=== PATIENT | male | born 1955 | race Caucasian/White ===

== ENCOUNTER 2018-05-01 05:25 | Emergency (ER) | payer BC ==
[~2018-05-01] VITALS: Ht 177.8 cm; Wt 121.1 kg
[2018-05-01 05:29] VITALS: BP 202/102
--- NOTE | 2018-05-01 05:29 | NUR ---
HOME MEDICATIONS PATIENT DOES NOT HAVE CURRENT HOME MEDICATION LIST. PATIENT DOES NOT RECALL ALL MEDICATIONS AND DOSES; HOWEVER VOICES HE TAKES THESE FOLLOWING MEDICATIONS: RAMIPRIL ISOSORBIDE SIMVASTATIN ASPIRIN JANUVIA
--- NOTE | 2018-05-01 05:29 | NUR ---
ARRIVAL PT ARRIVES VIA POV AND VOICES CHEST PAIN X1 HOUR. PT ACCOMPANIED BY FAMILY X3. PT TO ER ROOM 2 VIA W/C; POSITIONED IN BED TO COMFORT. UPON ARRIVAL, EKG OBTAINED IMMEDIATELY, VITALS OBTAINED, HISTORY OBTAINED AND EDP AT BEDSIDE. PT ALERT, ORIENTED. VOICES PAIN TO LEFT CHEST, DENIES RADIATION, DENIES SHORTNESS OF BREATH. PT VOICES SUDDEN ONSET PAIN AFTER GETTING OUT OF BATH TUB, HAD A NEAR FALL.
--- NOTE | 2018-05-01 05:34 | ER.PDOC ---
General Chief Complaint: Requesting Medical Care Stated Complaint: CHEST PAIN Time seen by MD: 05:33 Source: patient, family Exam Limitations: no limitations History of Present Illness Initial Comments Patient presents to the ED with vague central chest pain that started after patient slipped getting out of bath tub. Pain constant worse with deep breath. Hx TN with multiple stents Timing/Duration: 1-3 hours Severity/Quality: moderate Radiation: no radiation Activities at Onset: activity/exertion Prior CP/Workup: Cardiac Cath, Heart Attack Modifying Factors: movement, palpation Nitro Today/Relief: No Nitro Taken Today Aspirin Today: No Aspirin Today Associated Symptoms: denies symptoms Prior symptoms/Treatment: Similar symptoms previous, Treated by Doctor Allergies: Coded Allergies: No Known Allergies (Unverified , 05/01/18) Home Meds Unable to Obtain Active Prescriptions or Reported Meds Vital Sign Vital Signs Date Time Temp Pulse Resp B/P (MAP) Pulse Ox O2 Delivery O2 Flow Rate FiO2 05/01/18 05:29 98.3 91 22 98 Room Air Allergies Coded Allergies Type Severity Reaction Last Updated Verified No Known Allergies 05/01/18 No Past Medical History Medical History: angina, coronary artery disease, cardiac problems, heart attack, vascular disease Family History Significant Family History: no pertinent family hx Social History Alcohol Use: occassionally Reviewed Nursing Reviewed: Vital Signs, Abn. Noted, Nursing Assessment Constitutional: no symptoms reported EENTM: no symptoms reported Respiratory: no symptoms reported Cardiovascular: chest pain; denies edema, denies irregular heart rate, denies lightheadedness, denies palpitations, denies syncope Gastrointestinal: denies abdominal pain, denies diarrhea, denies nausea, denies vomiting Musculoskeletal: denies back pain, denies joint pain, denies muscle pain All Other Systems: Reviewed and Negative Physical Exam General Appearance: No Apparent Distress, WD/WN HEENT: PERRL/EOMI, Normal ENT Inspection, TMs Normal, Pharynx Normal Neck: Non-Tender, Full Range of Motion, Supple, Normal Inspection Respiratory: lungs clear, normal breath sounds, no respiratory distress, no accessory muscle use, other (pain with chest compression.) Cardiovascular: Normal Peripheral Pulses, Regular Rate, Rhythm, No Edema, No Gallop, No JVD, No Murmur Gastrointestinal: Normal Bowel Sounds, No Organomegaly, No Pulsatile Mass, Non Tender, Soft Extremities: Normal Range of Motion, Non-Tender, Normal Inspection, No Pedal Edema, No Calf Tenderness, Normal Capillary Refill Neurologic/Psychiatric: 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 NML as Tested, No Motor/Sensory Deficits, Alert, Normal Mood/Affect, Oriented x 3 Skin: Normal Color, Warm/Dry Lymphatic: No Adenopathy Results/Orders Results/Orders Laboratory Tests 05/01/18 05:40: White Blood Count 13.0H, Red Blood Count 5.17, Hemoglobin 14.2, Hematocrit 43.1 , Mean Corpuscular Volume 83.4, Mean Corpuscular Hemoglobin 27.5, Mean Corpuscular Hemoglobin Concent 32.9L, Red Cell Distribution Width 13.9, Platelet Count 87L, Mean Platelet Volume 11.5H, Neutrophils (%) (Auto) 89.3H, Lymphocytes (%) (Auto) 5.5*L, Monocytes (%) (Auto) 4.6L, Neutrophils # (Auto) 11.6H, Lymphocytes # (Auto) 0.7L, Monocytes # (Auto) 0.6, Absolute Immature Granulocyte (auto 0.04, Eosinophils % 0.3, Basophils % 0.0, Basophils # 0.0, Eosinophil Count 0.0, Sodium Level 138, Potassium Level 4.7, Chloride Level 103.0, Carbon Dioxide Level 23.7, Anion Gap 16.0, Blood Urea Nitrogen 18, Creatinine 1.38, Estimated GFR () 62.8, BUN/Creatinine Ratio 13.0, Glucose Level 390H, Calcium Level 9.3, Total Bilirubin 0.4, Aspartate Amino Transf (AST/SGOT) 16, Alanine Aminotransferase (ALT/SGPT) 22, Alkaline Phosphatase 131, Total Creatine Kinase 111, Creatine Kinase MB 2.7, Troponin I 0.10H, Total Protein 7.9, Albumin 4.0, Globulin 3.9, Percent Immature Gran ( Cell Imm) 0.30 05/01/18 05:51: Differential Total Cells Counted 100, Segmented Neutrophils 90H, Band Neutrophils 1L, Lymphocytes 2L, Monocytes 7 Progress Progress Patient with out complaints at this time EKG/XRAY/CT/US EKG: NSR, ME (158), QRS (82), nonspecific ST T wave chg XRAY: chest XRAY Comments: no acute findings Departure Time of Disposition: 06:25 Disposition: 70 DISC/XFER TO ANOTH TYP [facility] Impression: Primary Impression: Chest pain due to myocardial ischemia Additional Impression: NSTEMI, initial episode of care Condition: Stable Scripts Unable to Obtain Active Prescriptions or Reported Meds Duration or Time Spent with Pa: 60 Problem Qualifiers Primary Impression: Chest pain due to myocardial ischemia Ischemic chest pain type: unstable angina pectoris Qualified Codes: I20.0 - Unstable angina PIERO SOSA MD May 01, 2018 05:34
--- NOTE | 2018-05-01 05:35 | PCM.EKG ---
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
[2018-05-01 05:42] VITALS: BP 186/94
[2018-05-01 05:45] LABS: EOSINOPHIL % 0.3 % (0.0-5.0); HEMOGLOBIN 14.2 g/dL (13.9-16.3); LYMPHOCYTES # 0.7 10^3/uL (1.0-4.8); LYMPHOCYTES % 5.5 % (24.0-44.0); MEAN CELL HGB 27.5 pg (26-34); MEAN CELL HGB CONCENTRATION 32.9 g/dL (33-37); MEAN CORP VOLUME 83.4 fL (78-100); MEAN PLATELET VOLUME 11.5 fL (7.8-11.0); MONOCYTES # 0.6 10^3/uL (0.3-0.8); MONOCYTES % 4.6 % (5.0-12.0); NEUTROPHIL # 11.6 10^3/uL (1.8-7.7); NEUTROPHILS % 89.3 % (41.0-85.0); RED CELL DISTRIBUTION WIDTH 13.9 % (11.5-14.5)
[2018-05-01] MEDS ORDERED: ASPIRIN ONE (05:45)
--- NOTE | 2018-05-01 05:57 | DIREP ---
PROCEDURE:CHEST 1 VIEW COMPARISON:None. INDICATIONS:pain FINDINGS: LUNGS/PLEURA:No significant pulmonary parenchymal abnormalities. No effusions. VASCULATURE:Normal. Unremarkable pulmonary vasculature. CARDIAC:Normal. No cardiac silhouette abnormality or cardiomegaly. MEDIASTINUM:Normal. No visible mass or adenopathy. 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 CONCLUSION:No acute visualized airspace disease or acute fracture. Dictated by: Sage Brown DO on 05/01/2018 at 05:56 AM
[2018-05-01 06:00] VITALS: BP 193/94
[2018-05-01] MEDS ORDERED: ASPIRIN PO PRN (06:00)
[2018-05-01 06:11] VITALS: BP 190/96
[2018-05-01 06:16] LABS: CALCIUM 9.3 mg/dL (8.4-10.5); CARBON DIOXIDE 23.7 mmol/L (20.0-32)
--- NOTE | 2018-05-01 06:16 | NUR ---
BLOOD PRESSURE PT BLOOD PRESSURE REMAINS ELEVATED 190/96. HR 89. EDP NOTIFIED, NO ORDERS RECEIVED.
[2018-05-01 06:17] LABS: SEGMENTED NEUTROPHILS 90 % (31-76)
[2018-05-01 06:18] LABS: BAND NEUTROPHILS 1 % (2-6); LYMPHOCYTE 2 % (25-36); MONOCYTE 7 % (3-9)
[2018-05-01] MEDS ORDERED: NITROSTAT SL STA (06:21)
[2018-05-01 06:30] VITALS: BP 151/89
--- NOTE | 2018-05-01 06:31 | NUR ---
TRANSFER REQUEST TRANSFER REQUEST INITIATED PER EDP ORDER USING XFER-ALL. PT/FAMILY REQUEST NWTH.
--- NOTE | 2018-05-01 06:32 | NUR ---
TRANSFER ACCEPTED [facility] AUT[facility] ACCEPTED PT, ER TO ER TRANSFER. ACCEPTING PHYSICIAN IS DR. ROSS, [facility] ER AOD IS HERACLIO PARRA RN. FACE SHEET FAXED AT THIS TIME TO [phone]
--- NOTE | 2018-05-01 06:35 | NUR ---
[facility] ACCEPTING PHYSICIAN [facility] CHANGED ACCEPTING PHYSICIAN TO DR. SONG, [facility] ER.
--- NOTE | 2018-05-01 06:43 | NUR ---
[facility]S NOTIFIED [facility] [employer] OF TRANSFER. PT TO BE TRANSFERRED AFTER SHIFT CHANGE.
--- NOTE | 2018-05-01 06:44 | NUR ---
DR. LABOY/MAC REEDER NOTIFIED BOTH OF PENDING TRANSFER TO [facility].
--- NOTE | 2018-05-01 07:27 | NUR ---
[facility] HERE FOR PT TRANSFER TO [facility] ER FOR DR SONG.
[2018-05-01 07:30] VITALS: BP 162/84
--- NOTE | 2018-05-01 07:33 | NUR ---
PT LEFT DEPT PT LEFT DEPT AT THIS TIME VIA STRETCHER BY [facility]. PT GOING TO [facility] ER FOR DR SONG.
--- NOTE | 2018-05-01 07:37 | NUR ---
REPORT REPORT TO [facility].
== END 2018-05-01 07:33 | disposition other institution (70) ==
LOC: ER 05:25
DX: I21.4 Non-ST elevation (NSTEMI) myocardial infarction (principal); I25.9 Chronic ischemic heart disease, unspecified; I20.0 Unstable angina; Z79.899 Other long term (current) drug therapy
CPT/HCPCS: 36415; 71045; 80053; 82550; 82553; 84484; 85025; 85610; 85730; 93005; 99285